=== PATIENT | female | born 1945 | race Caucasian/White ===

== ENCOUNTER 2021-10-21 21:11 | Inpatient (IN) | payer OTHER, SELFPAY ==
[~2021-10-21] VITALS: Ht 167.6 cm; Wt 85.7 kg
[2021-10-21 21:13] VITALS: BP 170/85
--- NOTE | 2021-10-21 21:24 | NUR ---
PT BROUGHT TO BED 4 VIA [facility]
--- NOTE | 2021-10-21 21:30 | NUR ---
received pt from EMS and placed to bed 04. pt currently a/o x 2, gcs 14. pt is a 76 year old female with hx of CAD, a.fib, DM, CHF, HTN coming from B&C for cc of ALOC. per EMS, pt baseline a/o x 4. has increased decreased of mentation today. pt presents with edema to BUE and BLE.
[2021-10-21] MEDS ORDERED: MORPHINE SULFATE 4 MG/ML SYR IVP ONE (22:05)
[2021-10-21] MEDS ORDERED: VANCOMYCIN 1,000 MG in DEXTROSE 5% 250 ML IV ONE (22:05)
[2021-10-21 22:16] LABS: BASOPHILS # (AUTO) 0.1 K/uL (0.00-0.22); BASOPHILS % (AUTO) 0.7 % (0.0-2.0); EOSINOPHILS # (AUTO) 0.3 K/uL (0-0.4); EOSINOPHILS % (AUTO) 3.1 % (0.0-4.0); HEMATOCRIT 34.9 % (36-48); HEMOGLOBIN 11.7 g/dL (12.0-16.0); LYMPHOCYTES # (AUTO) 1.2 K/uL (2.5-16.5); LYMPHOCYTES % (AUTO) 13.6 % (20.5-51.1); MEAN CORPUSCULAR HEMOGLOBIN 29 pg (27-31); MEAN CORPUSCULAR HGB CONC 34 g/dL (33-37); MEAN CORPUSCULAR VOLUME 84.9 fL (80-94); MONOCYTES # (AUTO) 0.7 K/uL (0.8-1.0); MONOCYTES % (AUTO) 7.8 % (1.7-9.3); NEUTROPHILS # (AUTO) 6.6 K/uL (1.8-7.7); NEUTROPHILS % (AUTO) 74.8 % (42.2-75.2); PLATELET COUNT (AUTO) 445 K/uL (140-450); RED BLOOD CELL COUNT(AUTO) 4.11 MIL/uL (4.20-5.40); RED CELL DISTRIBUTION WIDTH 18.6 % (11.6-13.7); WHITE BLOOD COUNT (AUTO) 8.8 K/uL (4.8-10.8)
[2021-10-21 22:24] LABS: APPEARANCE,URINE CLEAR (CLEAR); BILIRUBIN,URINE NEGATIVE (NEGATIVE); BLOOD, URINE NEGATIVE (NEGATIVE); COLOR,URINE YELLOW (YELLOW); LEUKOCYTE ESTERASE ,URINE NEGATIVE (NEGATIVE); NITRITE, URINE NEGATIVE (NEGATIVE); UGLUCOSE NEGATIVE (NEGATIVE)
[2021-10-21] MEDS ORDERED: VANCOMYCIN 1,000 MG VIAL ONE (22:26)
[2021-10-21] MEDS ORDERED: MORPHINE SULFATE 2 MG/ML SYR ONE (22:26)
[2021-10-21 22:38] LABS: ALBUMIN 2.5 g/dL (3.4-5.0); ANION GAP 13.4 (8-16); ASPARTATE AMINOTRANSFERASE 20 U/L (15-37); CHLORIDE 101 mmol/L (98-107); CREATININE 1.3 mg/dL (0.6-1.3); GLUCOSE 148 mg/dL (74-106); POTASSIUM 4.4 mmol/L (3.5-5.1); SODIUM SERUM 138 mmol/L (136-145); TOTAL BILIRUBIN 0.3 mg/dL (0.0-1.0); UREA NITROGEN, BLOOD 24 mg/dL (7-18)
[2021-10-21 22:47] LABS: ACETAMINOPHEN < 0.5 ug/ml (10-30); SALICYLATE < 2.8 mg/dL (2.8-20.0)
[2021-10-21 22:50] LABS: BARBITURATE, URINE NEGATIVE ng/ml (NEG <=200); BENZODIAZEPINE, URINE NEGATIVE ng/mL (NEG <=200); CANNABINOID, URINE NEGATIVE ng/mL (NEG <=50); COCAINE, URINE NEGATIVE ng/mL (NEG <=300); OPIATE, URINE POSITIVE ng/mL (NEG <=2000); PHENCYCLIDINE SCREEN,URINE NEGATIVE ng/mL (NEG <=25)
--- NOTE | 2021-10-21 23:00 | NUR ---
NAD at this time. pt medicated with morphine and lasix at this time. remains on 2lpm n/c
[2021-10-22] MEDS ORDERED: FUROSEMIDE 40 MG/4 ML VIAL IVP STA (00:03)
[2021-10-22] MEDS ORDERED: FUROSEMIDE 40 MG/4 ML VIAL IVP ONE ×2 (00:04→00:10)
--- NOTE | 2021-10-22 01:00 | NUR ---
NAD at this time. on 2lpm n/c.
--- NOTE | 2021-10-22 03:00 | NUR ---
placed pillow on BLE.
[2021-10-22] MEDS ORDERED: VANCOMYCIN PER PHARMACY MC PRN (04:00)
[2021-10-22] MEDS ORDERED: APIX5TAB PO (07:34)
[2021-10-22] MEDS ORDERED: CARV3.12 PO (07:34)
[2021-10-22] MEDS ORDERED: SPIR50TA PO (07:34)
[2021-10-22] MEDS ORDERED: MULT-2540 PO (07:34)
[2021-10-22] MEDS ORDERED: ZAR2.5 PO (07:34)
[2021-10-22] MEDS ORDERED: GABA300C PO (07:34)
[2021-10-22] MEDS ORDERED: OMEP20TC10 PO (07:34)
[2021-10-22] MEDS ORDERED: FENO145T PO (07:34)
[2021-10-22] MEDS ORDERED: LANTUS SUBQ (07:34)
[2021-10-22] MEDS ORDERED: BUS5 PO (07:34)
--- NOTE | 2021-10-22 07:40 | NUR ---
RECEIVED PT IN RNEY ALERT ORIENTED, C/O BACK PAIN, PT MADE AWARE WILL CHECK ORDER PRN PAIN MEDICATION. NSR ON MONITOR. +3 PITTING EDEMA TO BLE. IV INTACT AND PATENT SL. NAD. SAFETY MAINTAINED.
--- NOTE | 2021-10-22 07:55 | NUR ---
PT C/O 04/23 BACK PAIN, NO PRN MEDS ORDERED FOR PAIN, PENDING FURTHER ORDERS FROM DR FERGUSON
[2021-10-22] MEDS ORDERED: MORPHINE SULFATE 2 MG/ML SYR IVP PRN (08:05)
[2021-10-22] MEDS ORDERED: MORPHINE SULFATE 2 MG/ML SYR ONE (08:05)
[2021-10-22] MEDS ORDERED: FUROSEMIDE 40 MG/4 ML VIAL IVP SCH (09:00)
--- NOTE | 2021-10-22 11:09 | NUR ---
DR FERGUSON AT BEDSIDE.
[2021-10-22 11:54] LABS: BASOPHILS # (AUTO) 0.1 K/uL (0.00-0.22); BASOPHILS % (AUTO) 0.8 % (0.0-2.0); EOSINOPHILS # (AUTO) 0.2 K/uL (0-0.4); EOSINOPHILS % (AUTO) 2.3 % (0.0-4.0); HEMATOCRIT 34.9 % (36-48); HEMOGLOBIN 11.3 g/dL (12.0-16.0); LYMPHOCYTES % (AUTO) 11.3 % (20.5-51.1); MEAN CORPUSCULAR HEMOGLOBIN 28 pg (27-31); MEAN CORPUSCULAR HGB CONC 32 g/dL (33-37); MEAN CORPUSCULAR VOLUME 85.4 fL (80-94); MONOCYTES # (AUTO) 0.5 K/uL (0.8-1.0); MONOCYTES % (AUTO) 5.4 % (1.7-9.3); NEUTROPHILS # (AUTO) 7.5 K/uL (1.8-7.7); NEUTROPHILS % (AUTO) 80.2 % (42.2-75.2); PLATELET COUNT (AUTO) 407 K/uL (140-450); RED BLOOD CELL COUNT(AUTO) 4.08 MIL/uL (4.20-5.40); RED CELL DISTRIBUTION WIDTH 18.5 % (11.6-13.7); WHITE BLOOD COUNT (AUTO) 9.3 K/uL (4.8-10.8)
[2021-10-22 12:20] LABS: ALBUMIN 2.3 g/dL (3.4-5.0); ANION GAP 12.9 (8-16); ASPARTATE AMINOTRANSFERASE 17 U/L (15-37); CARBON DIOXIDE 26.2 mmol/L (21-32); CHLORIDE 102 mmol/L (98-107); CREATININE 1.2 mg/dL (0.6-1.3); GLUCOSE 153 mg/dL (74-106); POTASSIUM 4.1 mmol/L (3.5-5.1); SODIUM SERUM 137 mmol/L (136-145); TOTAL BILIRUBIN 0.5 mg/dL (0.0-1.0); UREA NITROGEN, BLOOD 22 mg/dL (7-18)
[2021-10-22] MEDS: MORPHINE SULFATE 4 MG/ML SYR IVP PRN ×2 (13:00→17:59)
--- NOTE | 2021-10-22 13:00 | NUR ---
PT C/O 03/23 BACK PAIN REPOSITIONED FOR COMFORT AND MEDICATED WITH MORPHINE PER ORDER.
--- NOTE | 2021-10-22 16:00 | NUR ---
pt c/o anxiety and back pain repositioned for comfort and medicated per order. tolerated well. will continue to monitor
--- NOTE | 2021-10-22 16:03 | NUR ---
PATIENT HAS BEEN SCREENED AND CATEGORIZED MODERATE NUTRITION RISK. PATIENT WILL BE SEEN WITHIN 3-[address] DA[address] OF ADMISSION. [address]
[2021-10-22] MEDS: FUROSEMIDE 40 MG/4 ML VIAL IVP SCH (17:59)
[2021-10-22] MEDS ORDERED: LORazepam 2 MG/ML VIAL IVP PRN (18:15)
--- NOTE | 2021-10-22 18:15 | NUR ---
pt c/o anxiety, received order for ativan by dr brooks.
--- NOTE | 2021-10-22 19:20 | NUR ---
report given to yadi BECERRA
--- NOTE | 2021-10-22 19:47 | NUR ---
REPORT RECEIVED FROM MARIAM CROSS FOR CONTINUITY OF PT CARE AT THIS TIME.
--- NOTE | 2021-10-22 19:57 | NUR ---
PT IN BED LOCKED IN LOWEST POSITION W X2 SIDERAILS UP FOR PT SAFETY. PT REPORTS MILD BACKPAIN, ASSISTED TO REPOSITION FOR COMFORT AT THIS TIME. PT DENIES SOB, NAUSEA, HEADACHE OR OTHER SYMPTOMS. PT HAS PUREWICK. PT ON 2L NC W 95% O2 SAT. CNNECTED TO MONITOR W VSS. BREATHINIG EVEN AND UNLABORED. PT EATING. NAD NOTED, WILL CONTINUE TO MONITOR.
[2021-10-22] MEDS ORDERED: GABAPENTIN 300 MG CAP PO SCH (21:00)
[2021-10-22] MEDS ORDERED: INSULIN LANTUS 100 UNITS/ML 10 ML VIAL SUBQ SCH (21:00)
--- NOTE | 2021-10-22 21:06 | NUR ---
CALLED MARIAM PANTOJA TO GIVE REPORT. NO ANSWER AT THIS TIME.
[2021-10-22] MEDS: carvediloL 3.125 MG TAB PO SCH (21:17)
[2021-10-22] MEDS: APIXABAN 2.5 MG TAB PO SCH (21:17)
[2021-10-22] MEDS: busPIRone 5 MG TAB PO SCH (21:17)
--- NOTE | 2021-10-22 21:23 | NUR ---
Patient will be admitted to care of DR. FERGUSON. Admited to TELEMETRYT. Will go to room 121B. Belongings list completed. Report to MARIAM PANTOJA.
[2021-10-22] MEDS ORDERED: VANCOMYCIN 1,000 MG in DEXTROSE 5% 250 ML IV SCH (22:00)
[2021-10-23] MEDS ORDERED: DEXTROSE 50% 50 ML SYR IVP PRN (01:00)
[2021-10-23] MEDS ORDERED: POTASSIUM CHLORIDE 10 MEQ TABER PO PRN (01:00)
[2021-10-23] MEDS ORDERED: MAG SULF 2000 MG/WATER PREMIX 50 ML IV PRN (01:00)
[2021-10-23] MEDS ORDERED: INSULIN LISPRO SLIDING SCALE 100 UNITS/ML VIAL SUBQ PRN (01:00)
[2021-10-23] MEDS ORDERED: LACTULOSE 20 GM/30 ML UDC PO SCH ×2 (01:05→09:00)
[2021-10-23] MEDS: BLOOD GLUCOSE MONITORING 1 DEV DEV FS SCH ×3 (07:30→16:41)
[2021-10-23 08:00] VITALS: BP 114/78
--- NOTE | 2021-10-23 08:03 | NUR ---
RECEIVED REPORT FROM WINDOWS SOFTWARE ENGINEER NURSE, KIT, FOR CONTINUITY OF CARE. PT IS STABLE IN BED WITH CONTRACT NEGOTIATION SPECIALIST AT BEDSIDE. PT SHOWS NO S/S OF DISTRESS. ALL SAFETY MEASURES IN PLACE, CALL LIGHT WITHIN REACH. WILL CONTINUE TO MONITOR.
[2021-10-23] MEDS: FUROSEMIDE 40 MG/4 ML VIAL IVP SCH ×2 (08:30→17:00)
[2021-10-23] MEDS: MORPHINE SULFATE 4 MG/ML SYR IVP PRN ×3 (08:30→17:01)
--- NOTE | 2021-10-23 08:30 | NUR ---
PRN PAIN MEDICATION ADMINISTERED PER MD ORDER, WANDER MEDICATION ADMINISTERED PER MD ORDER. PT TOLERATED ADMINISTRATION. ALL SAFETY MEASURES IN PLACE, CALL LIGHT WITHIN REACH. WILL CONTINUE TO MONTIOR.
[2021-10-23] MEDS: APIXABAN 2.5 MG TAB PO SCH (08:32)
[2021-10-23] MEDS: carvediloL 3.125 MG TAB PO SCH (08:33)
[2021-10-23] MEDS: busPIRone 5 MG TAB PO SCH (08:33)
[2021-10-23] MEDS ORDERED: NON-FORMULARY ITEM (Omeprazole 20 MG) PO SCH (09:00)
[2021-10-23] MEDS ORDERED: busPIRone 5 MG TAB PO SCH (09:00)
[2021-10-23] MEDS ORDERED: MULTIVITAMIN 1 TAB PO SCH (09:00)
[2021-10-23] MEDS ORDERED: SPIRONOLACTONE 25 MG TAB PO SCH (09:00)
[2021-10-23] MEDS ORDERED: metOLazone 2.5 MG TAB PO SCH ×2 (09:00)
[2021-10-23] MEDS ORDERED: carvediloL 3.125 MG TAB PO SCH (09:00)
[2021-10-23] MEDS ORDERED: FENOFIBRATE 48 MG TAB PO SCH (09:00)
[2021-10-23] MEDS ORDERED: APIXABAN 2.5 MG TAB PO SCH (09:00)
[2021-10-23] MEDS ORDERED: SPIRONOLACTONE 50 MG TAB PO SCH (09:00)
[2021-10-23] MEDS ORDERED: FENOFIBRATE NANOCRYSTALLIZED PO SCH (09:00)
[2021-10-23] MEDS ORDERED: PANTOPRAZOLE 40 MG TABEC PO SCH (09:00)
[2021-10-23 12:00] VITALS: BP 145/82
--- NOTE | 2021-10-23 12:00 | NUR ---
BLOOD GLUCOSE IS 188, 2 UNITS OF INSULIN ADMINISTERED PER MD ORDER. PT TOLERATED ADMINISTRATION. PURE WICK APPLIED TO PT FOR INCONTINENCE
[2021-10-23] MEDS: INSULIN LISPRO SLIDING SCALE 100 UNITS/ML VIAL SUBQ PRN ×2 (12:25→17:02)
--- NOTE | 2021-10-23 12:40 | NUR ---
UPON TAKING VITAL SIGNS, PT O2 WAS AT 81%, NO S/S OF SOB AND PT DENIES SOB. PLACED ON 6L NC, BROUGHT PT O2 UP TO 92%. MADE AWARE.
--- NOTE | 2021-10-23 12:49 | NUR ---
PRN PAIN MEDICATION ADMINISTERED PER MD ORDER. PT TOLERATED ADMINISTRATION.
--- NOTE | 2021-10-23 14:00 | NUR ---
PATIENT IS A 76 YEAR OLD FEMALE ADMITTED AT THE [facility]/ED ON 10/22/2021 DUE TO WORSENING MENTAL STATUS, PATIENT WAS CONFUSED, DISORIENTED AND REPORTED HAVING SEVERE PAIN IN HER BILATERAL LOWER EXTREMITIES. SW MET WITH PATIENT AT BEDSIDE TO DISCUS AND GATHER PATIENT'S COLLATERAL INFORMATION. PATIENT WAS AWAKE AND ALERT, ABLE TO PROVIDE HER INFORMATION. PATIENT REPORTED THAT SHE LIVES AT [facility]. (ASSISTED LIVING). PATIENT STATED THAT SHE HAS FAMILY SUPPORT FROM HER NIECE PIPPA PAGE AND WHO IS ALSO LISTED HER EMERGENCY CONTACT AND HER MEDICAL DECISION MAKER. PATIENT WAS ABLE TO RESPOND TO SOME OF HER QUESTIONS AND SW ASK HER IF IT WILL BE OK FOR HER IF THESE COUNTER HELP SPEAKS TO HER NIECE. PATIENT AGREED. SW THANKED HER OR THE INFORMATION AND ENDED THE VISIT WITH PATIENT. SW CALL PATIENT'S NIECE PIPPA PAGE AT TO DISCUSS PATIENT'S INFORMATION. PATIENT'S NIECE PIPPA DISCUSS PATIENT'S ISSUES WITH MEMORY AND HER LIVING SITUATION AT [facility]. PER PATIENT'S NIECE PATIENT WILL BE RETURNING TO THE FACILITY WHEN SHE IS ABLE TO DISCHARGE FROM [facility]. STATED THAT SHE IS PATIENT'S MEDICAL DECISION MAKER AND HER ONLY FAMILY SUPPORT. PER PATIENT'S NIECE PATIENT IS USUALLY COOPERATIVE AND HAS NO ISSUES GETTING OR TAKING HER MEDICATIONS, PER NIECE PATIENT WILL CONTINUE TO FOLLOW UP WITH HER PCP SALVADOR MARTE. AND WILL CONTINUE FOLLOWING UP WITH HER CARE WITH DR. SANDRA AFTER SHE IS DISCHARGE FROM [facility]. SW INFORMED PATIENT'S NIECE OF HER DISCHARGE TODAY AND RETURN TO [facility] AT ABOUT 18;00 PATIENT'S NICE THANKED THIS COUNTER HELP FOR THE INFORMATION AND ENDED THE CALL. SW WILL FOLLOW NEEDED.
--- NOTE | 2021-10-23 17:36 | NUR ---
AT ROUGHLY 1620, STATED PT WILL BE DISCHARGED SHORTLY. CALLED CASE MANAGEMENT IN REGARD TO TRANSPORTATION OF PATIENT BACK TO HER FACILITY. ORDER PLACED FOR SS. DISCHARGE ORDER PLACED AT ROUGHLY 1700. CASE MANAGEMENT WORKING ON DISCHARGE
--- NOTE | 2021-10-23 17:40 | NUR ---
DC PLANNING SW CALL PATIENTS FACILITY [facility] SPOKE TO AZUCENA TO INFORM HER OF PATIENT DISCHARGE TODAY BACK TO THEIR FACILITY AND DISCUSSED TRANSPORTATION. PER AZUCENA THEY DO HAVE TRANSPORTATION HOWEVER; THEIR COMPOSITION WEATHERBOARD APPLIER IS NO LONGER AVAILABLE FOR PATIENT TO GET OCEAN FREIGHT AGENT DUE TO LAST TRIP BEEN SCHEDULED AT 16:30 EVERY DAY. SW INFORM AZUCENA THAT INS[facility] WILL BE CONTACTED TO HAVE PATIENT TRANSPORT AUTHORIZED BY [facility]. AZUCNEA AGREED AND ENDED THE CALL. TAOY ATTEMPTED TO CONTAC [facility] AT TO GET PATIENT TRANSPORT AUTHORIZATION. TAYO ATTEMPTED SEVERAL FIRST DEBBIE, BUT NO RESPONSE, THE [facility] AT ALSO NO RESPONSE, AND SW LEFT HER SEVERAL VOICE MAIL MSG THEN FINALLY BUT STILL NO RESPONSE. TAYO THEN CONTACTED MINE ANALYST TRANSPORT RN TO DISCUSS POSSIBLE APPROVAL FOR PATIENT TO GET TRANSPORTED BACK TO HER FACILITY TODAY BY [facility]. MINE ANALYST AGREED AND TAYO CONTACTED [facility] AT TO SCHEDULED PT'S OCEAN FREIGHT AGENT TIME AND DROP OFF BACK TO HER FACILITY. SHARYN AGREED AND REPORTED THAT OCEAN FREIGHT AGENT TIME WILL BE AT ABOUT 18:30PM. TAYO THANK HIM AND ALSO CONTACTED MARIAM MOFFETT ENDORSING INFORMATION ABOUT PATIENT OCEAN FREIGHT AGENT TIME.
--- NOTE | 2021-10-23 18:44 | NUR ---
AT ROUGHLY 1800, TONIA, AIRCRAFT PILOT FROM FACILITY CALLED AND UPDATED ON FOUNDRY FINISHER TIME. CALLED FACILITY AND SPOKE WITH AZUCENA AND GAVE REPORT IN REGARDS TO PATIENTS CONDITION. AT ROUGHLY 1820, DISCHARGE INSTRUCTION WERE COVERED WITH THE PATIENT AND THE PATIENT SIGNED DISCHARGE PAPERWORK, REPORTS ALL NEEDS WERE MET THROUGHOUT STAY. ALL BELINGINGS AT BEDSIDE. ALL QUESTIONS HAS BEEN ANSWERED. IV REMOVED, WRIST BAND REMOVED. PT CLEANED AND PLACED IN A DIAPER, STATES THAT SHE DID NOT HAVE PANTS WHEN SHE ARRIVED TO THE EMERGENCY ROOM, SHE ONLY HAD HER SWEATER. AT 1825 PT WAS PICKED UP BY TRANSPORT PERSONNEL WITH [facility]. PT TELE MONITOR REMOVED AND PLACED BACK IN INVENTORY CONTROL/SHIPPING RECEIVING ROOM. PT WAS DISCHARGED IN STABLE CONDITION
[2021-10-23] MEDS ORDERED: GABAPENTIN 300 MG CAP PO SCH (21:00)
[2021-10-23] MEDS ORDERED: INSULIN LANTUS 100 UNITS/ML 10 ML VIAL SUBQ SCH (21:00)
[2021-10-24 15:06] LABS: HEPATITIS B CORE AB TOTAL Negative (Negative); HEPATITIS B SURFACE ANTIBODY Non Reactive (.); HEPATITIS B SURFACE ANTIGEN Negative (Negative)
== END 2021-10-23 18:44 | DRG 441 ==
LOC: EDSEX 21:11 → MED 21:11 → MTU 10-22 04:05 → OBSVTOIN 10-23 14:03
DX: K72.90 Hepatic failure, unspecified without coma (principal); E43 Unspecified severe protein-calorie malnutrition; I50.33 Acute on chronic diastolic (congestive) heart failure; L03.116 Cellulitis of left lower limb; L03.115 Cellulitis of right lower limb; I11.0 Hypertensive heart disease with heart failure; K21.9 Gastro-esophageal reflux disease without esophagitis; I48.0 Paroxysmal atrial fibrillation; E11.40 Type 2 diabetes mellitus with diabetic neuropathy, unspecified; E78.5 Hyperlipidemia, unspecified; E86.0 Dehydration; I25.10 Atherosclerotic heart disease of native coronary artery without angina pectoris; Z20.822 Contact with and (suspected) exposure to COVID-19; Z79.01 Long term (current) use of anticoagulants; Z79.899 Other long term (current) drug therapy; Z95.0 Presence of cardiac pacemaker; Z68.30 Body mass index [BMI] 30.0-30.9, adult
CPT/HCPCS: 96365; 96375; 96376; 99285; G0378; 36415; 70450; 71045; 76705; 80053; 80305; 81003; 82140; 82550; 82948; 83605; 83880; 84484; 85025; 86704; 86706; 86708; 86709; 86803; 87040; 87340; 93005; 93925; 93970; 97163-GP; 97530; G0480; G0482; J1815; J1940; J2060; J2270; J3370; J7060; Q0092

== ENCOUNTER 2021-11-11 15:18 | Emergency (ER) | payer OTHER, SELFPAY ==
[~2021-11-11] VITALS: Ht 152.4 cm; Wt 90.7 kg
[~2021-11-11 15:18] MED LIST: APIX5TAB PO; BUS5 PO; CARV3.12 PO; FENO145T PO; GABA300C PO; LANTUS SUBQ; MULT-2540 PO; OMEP20TC10 PO; SPIR50TA PO; ZAR2.5 PO
[2021-11-11 15:28] VITALS: BP 142/94
--- NOTE | 2021-11-11 15:30 | NUR ---
76 y/o female biba from [facility], pt requested to be seen for bilateral leg edema, per ems states it is chronic, but pain has worsened today. bilateral legs are reddened, pitting edema +2, hot to touch and tender. Pt A&0 x3, pt placed in gown, pt placed vss monitor, DENIES N/V/D; SKIN IS PINK/WARM/DRY, PATIENT POSITIONED FOR COMFORT; HOB ELEVATED; BEDRAILS UP X2; BED DOWN. ER MD MADE AWARE OF PT STATUS. pmh: dm2, 2 stents, pneumonia, htn meds: see list nkda
[2021-11-11] MEDS ORDERED: FURO-570 PO (15:42)
[2021-11-11] MEDS ORDERED: SENN-72 PO (15:42)
[2021-11-11] MEDS ORDERED: MELO15TA11 PO (15:42)
[2021-11-11] MEDS ORDERED: HUM SUBQ (15:42)
[2021-11-11] MEDS ORDERED: [UNRECOGNIZED DRUG - CODE] PO (15:42)
[2021-11-11] MEDS ORDERED: FUROSEMIDE 40 MG/4 ML VIAL IVP ONE (18:35)
[2021-11-11] MEDS: FUROSEMIDE 40 MG/4 ML VIAL IVP ONE (18:45)
[2021-11-11 18:53] LABS: BASOPHILS # (AUTO) 0.2 K/uL (0.00-0.22); EOSINOPHILS # (AUTO) 0.4 K/uL (0-0.4); EOSINOPHILS % (AUTO) 6.7 % (0.0-4.0); HEMATOCRIT 34.3 % (36-48); HEMOGLOBIN 11.2 g/dL (12.0-16.0); LYMPHOCYTES # (AUTO) 0.7 K/uL (2.5-16.5); LYMPHOCYTES % (AUTO) 10.2 % (20.5-51.1); MEAN CORPUSCULAR HEMOGLOBIN 28 pg (27-31); MEAN CORPUSCULAR HGB CONC 33 g/dL (33-37); MEAN CORPUSCULAR VOLUME 84.7 fL (80-94); MONOCYTES # (AUTO) 0.3 K/uL (0.8-1.0); MONOCYTES % (AUTO) 5.1 % (1.7-9.3); NEUTROPHILS # (AUTO) 4.8 K/uL (1.8-7.7); PLATELET COUNT (AUTO) 383 K/uL (140-450); RED BLOOD CELL COUNT(AUTO) 4.05 MIL/uL (4.20-5.40); RED CELL DISTRIBUTION WIDTH 17.7 % (11.6-13.7); WHITE BLOOD COUNT (AUTO) 6.5 K/uL (4.8-10.8)
[2021-11-11 19:18] LABS: ALBUMIN 2.4 g/dL (3.4-5.0); ANION GAP 13.1 (8-16); ASPARTATE AMINOTRANSFERASE 15 U/L (15-37); CARBON DIOXIDE 26.2 mmol/L (21-32); CHLORIDE 104 mmol/L (98-107); CREATININE 1.3 mg/dL (0.6-1.3); GLUCOSE 147 mg/dL (74-106); POTASSIUM 4.3 mmol/L (3.5-5.1); SODIUM SERUM 139 mmol/L (136-145); TOTAL BILIRUBIN 0.4 mg/dL (0.0-1.0); UREA NITROGEN, BLOOD 28 mg/dL (7-18)
--- NOTE | 2021-11-11 19:21 | NUR ---
REPORT RECEIVED FROM MARIAM RUBALCAVA FOR CONTINUITY OF PT CARE AT THIS TIME.
--- NOTE | 2021-11-11 19:21 | NUR ---
REPORT GIVEN TO MARIAM HERRERA FOR CONTINUITY OF PT CARE AT THIS TIME.
--- NOTE | 2021-11-11 19:25 | NUR ---
Sera manzo in [facility] - 11/11/21 at 1925 by ULISSES REPORT RECEIVED FROM MARIAM RUBALCAVA FOR CONTINUITY OF PT CARE AT THIS TIME.
--- NOTE | 2021-11-11 19:31 | NUR ---
PT AWAKE IN BED LAYING IN SUPINE POSITION, BED LOCKED IN LOWEST POSITION. X1 SIDERAIL UP. PT C/O OF ONGOING BL LEG PAIN. PT MEDICATED FOR PAIN AND ASSISTED IN REPORISITON OF LEGS FOR COMFORT. PT CONNECTED TO MONITOR W VSS. PT HAS PUREWICK ON CONNECTED TO SUCTIONS. ALL OTHER NEEDS MET. BREATHING EVEN AND UNLABORED. NAD NOTED, WILL CONTINUE TO MONITOR.
[2021-11-11] MEDS: ACETAMINOPHEN EXTRA STRENGTH 500 MG TAB PO ONE (19:50)
--- NOTE | 2021-11-11 20:12 | NUR ---
SPOKE TO MARIAM DE LOS SANTOS FROM [facility] TO PROVIDE PT STATUS UPDATE.
--- NOTE | 2021-11-11 21:14 | NUR ---
SPOKE Luis BUI FROM [facility]. PER RAMYA TO FAX OVER CLINICALS, COVID RESULTS AND FACE SHEET TO [phone].
--- NOTE | 2021-11-11 23:29 | NUR ---
PT APPEARS TO BE RSTING W EYES CLOSED IN SUPINE POSITION. BREATHING EVEN AND UNLABORED. NAD NOTED, WILL CONTINUE TO MONITOR.
--- NOTE | 2021-11-11 23:48 | NUR ---
PT REPORTS NOT WANTING TO BE TRANSFERED TO [facility], WOULD LIKE TO STAY HERE AT [facility]. CONTACTED HER INSURANCE FOR REQUEST, AWAITING RESPONSE.
--- NOTE | 2021-11-11 23:52 | NUR ---
PER INSURANCE PT TO BE TRANSFERED TO [place]. PT MADE AWARE. PER PT CONSENT TO TRANSFER TO [facility].
--- NOTE | 2021-11-12 01:40 | NUR ---
PT C/O OF 04/23 LEG PAIN, RE-ARRANGED ELEVATION OF LEGS W PILLOW. ERMD MADE AWARE.
[2021-11-12] MEDS: HYDROcodone/APAP 5/325 MG 1 TAB TAB PO ONE (01:59)
--- NOTE | 2021-11-12 03:12 | NUR ---
PT APPEARS TO BE RESTING W EYES CLOSED. CONNECTED TO MONITOR W VSS. BREATHING EVEN AND UNLABORED. NAD NOTED, WILL CONTINUE TO MONITOR.
--- NOTE | 2021-11-12 03:42 | NUR ---
Sera manzo in ED - 11/12/21 at 0342 by ULISSES Pt report given to ALL, LANDSCAPE ARCHITECTURE TEACHER. Transfer of care at this time.
--- NOTE | 2021-11-12 03:42 | NUR ---
Pt report given to ALL, RAILROAD WATCHMAN. Transfer of care at this time. PER ALL TO HAVE PT BE BROUGHT IN BY [facility] THROUGH ER.
--- NOTE | 2021-11-12 05:51 | NUR ---
[facility] TRANSPORT AT BEDSIDE
[2021-11-12 06:09] VITALS: BP 144/72
--- NOTE | 2021-11-12 06:09 | NUR ---
PT TAKEN BY [facility]SPORT TO [facility] TELE STATION 3 ROOM 351 A
--- NOTE | 2021-11-12 06:09 | NUR ---
Patient to be transferred to [facility]. Is being transferred due to INSURANCE REQUEST. Receiving facility has accepting physician and available space. ER physician has signed transfer form. Patient or responsible libertarian has agreed to transfer and signed form. Patient belongings inventoried and will be sent with patient. Copy of nursing notes, lab reports, EKG, Physicians Orders and X-rays to be sent with patient. Report called to ALL, RN at receiving facility. [facility] ambulance service has been called for transfer. [facility] TRANSFERRING PT AT THIS TIME.
== END 2021-11-12 06:09 | disposition short-term general hospital (02) ==
LOC: MED 15:18
DX: J96.91 Respiratory failure, unspecified with hypoxia (principal); I11.0 Hypertensive heart disease with heart failure; I50.9 Heart failure, unspecified; R22.43 Localized swelling, mass and lump, lower limb, bilateral; Z20.822 Contact with and (suspected) exposure to COVID-19; I48.91 Unspecified atrial fibrillation; I25.10 Atherosclerotic heart disease of native coronary artery without angina pectoris; E11.9 Type 2 diabetes mellitus without complications; Z98.890 Other specified postprocedural states; Z79.899 Other long term (current) drug therapy; Z79.4 Long term (current) use of insulin; Z79.01 Long term (current) use of anticoagulants; Z79.1 Long term (current) use of non-steroidal anti-inflammatories (NSAID)
CPT/HCPCS: 36415; 71045; 80053; 83605; 83880; 84484; 85025; 87040; 87426; 93005; 96374; 99291; J1940; Q0092